=== PATIENT | male | born 1960 | race Caucasian/White ===

== ENCOUNTER 2016-10-16 02:18 | Observation (INO) ==
[2016-10-16] MEDS ORDERED: ONDANSETRON 4 MG/2 ML VIAL ONE (02:32)
[2016-10-16] MEDS ORDERED: ONDANSETRON 4 MG/2 ML VIAL IV STA (02:35)
[2016-10-16] MEDS ORDERED: HYDROmorphone 2 MG/1 ML VIAL IV STA (02:45)
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
[2016-10-16] MEDS ORDERED: HYDROmorphone 2 MG/1 ML VIAL ONE (03:28)
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
[2016-10-16] MEDS ORDERED: BISACODYL 5 MG TABLET PO PRN (03:55)
[2016-10-16] MEDS ORDERED: MORPHINE 2 MG/1 ML SYRINGE IV PRN (03:55)
[2016-10-16] MEDS ORDERED: ONDANSETRON 4 MG/2 ML VIAL IV PRN (03:55)
[2016-10-16] MEDS ORDERED: ACETAMINOPHEN 325 MG TABLET PO PRN (03:55)
[2016-10-16] MEDS ORDERED: SODIUM CHLORIDE 0.9% 1,000 ML IV SCH (04:00)
[2016-10-16 05:27] LABS: Basophils % 0.3 % (0.0-0.8); Eosinophils % 0.1 % (0.00-10.9); Hematocrit 34.8 VOL% (42.0-52.0); Immature Granulocytes % 0.4 %; Immature Granulocytes Absolute 0.03 #; Lymphocytes # 0.8 10*3/uL (1.4-4.0); Lymphocytes % 11.7 % (21.2-54.2); Mean Corpuscular HGB Conc 34.5 GM/DL (32-36); Mean Corpuscular Hemoglobin 33 PG (27-34); Mean Corpuscular Volume 94.8 FL (87-102); Mean Platelet Volume 10.3 FL (9.6-12.0); Monocytes # 0.4 10*3/uL (0.11-0.8); Monocytes % 6.1 % (1.7-12.7); Neutrophils # 5.4 10*3/uL (1.4-7.4); Neutrophils % 81.4 % (38.7-73.9); Platelet Count 110 T/CUMM (130-400); Red Blood Count 3.67 MC/CUMM (3.8-5.5); Red Cell Distribution Width 13.9 % (9.3-17.3); White Blood Count 6.7 T/CUMM (4-12)
[2016-10-16 05:57] LABS: Albumin 3.7 G/DL (3.4-5.0); Bilirubin,Total 1.2 MG/DL (0.2-1.0); Calcium 8.7 MG/DL (8.5-10.1); Osmolality,Calculated 276.5 MOS/KG (273-304); Potassium 3.8 MMOL/L (3.5-5.1); Total Protein 6.8 G/DL (6.4-8.3)
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
[2016-10-16] MEDS: PANTOPRAZOLE 40 MG TABLET PO SCH (09:33)
[2016-10-16] MEDS: ENOXAPARIN 40 MG/0.4 ML SYRINGE SUBCUT SCH (09:33)
[2016-10-16] MEDS: ESCITALOPRAM 10 MG TABLET PO SCH (09:33)
[2016-10-16] MEDS: buPROPion SR 100 MG TABLET PO SCH ×2 (09:33→20:34)
--- NOTE | 2016-10-16 09:46 | Hospitalist Progress Note ---
Assessment and Plan - Time spent with patient Time spent with patient: Less than 30 minutes (1) Intractable nausea and vomiting Status: Acute Current Visit: Yes (2) Acute duodenitis Status: Acute Current Visit: Yes (3) Abdominal pain Status: Acute Assessment and plan: Continue IV fluid hydration, regularly wean off and discontinue if he tolerates oral feeds well. Continue IV Protonix Add amylase and lipase to labs. If symptoms are not improved, consider CT scan of the abdomen for further evaluation. I will await gastroenterology recommendations. Current Visit: Yes Hospitalist: Subjective Interval history: 56-year-old man admitted earlier this morning for intractable abdominal pain, nausea and vomiting due to gastritis/duodenitis. He is being managed supportively, gastroenterology was consulted, follow-up their final recommendation. These could be due to acute pancreatitis, no amylase or lipase in his earlier labs reported. We will order. He however feels much better already, no more nausea and vomiting. Abdominal pain also improved. He is willing to try oral feeds Exam - Constitutional Vitals: Period Temp Pulse Resp BP Sys/Johnson Pulse Ox Last 24 Hr 97.9 F-98.0 F 75-97 16-20 98-148/50-90 97-100 Exam: General exam is unchanged from admission. Results - Labs CBC & BMP: 10/16/16 05:11 10/16/16 05:11 Lab Results: I have reviewed the past 24 hour labs Quality Measures - Stroke Symptom Onset Unknown: No
[2016-10-16] MEDS: ALPRAZolam 0.5 MG TABLET PO PRN (16:29)
[2016-10-17] MEDS: PANTOPRAZOLE 40 MG TABLET PO SCH (08:36)
[2016-10-17] MEDS: buPROPion SR 100 MG TABLET PO SCH (08:36)
[2016-10-17] MEDS: ESCITALOPRAM 10 MG TABLET PO SCH (08:36)
[2016-10-17] MEDS: ENOXAPARIN 40 MG/0.4 ML SYRINGE SUBCUT SCH (08:36)
--- NOTE | 2016-10-17 09:27 | Discharge Summary ---
Hospital Course - Hospital Course Hospital Course: This is a chronically ill 56-year-old male that presented to the ED at [facility] as a lateral transfer from a [facility] for further evaluation of abdominal pain nausea and vomiting. The patient has a medical history significant for hypertension, anxiety, schizophrenia , chronic back pain , chronic pain syndrome, depression, hepatitis C, benign prostatic hyperplasia, nicotine addiction, cannabis abuse, pancreatitis, and left lobe liver mass. The patient reports a surgical history of abdominal surgery and multiple orthopedic procedures. The patient had presented to [facility] the morning of presentation reporting a complaint of abdominal pain. He reported that the pain was moderate however tolerable and crampy in quality. He denied radiation of pain to the chest or back and reported that the pain started gradually a couple of hours prior to him presenting to the ED. In addition the patient reported multiple episodes of nausea and vomiting, however denied melena or mucus in his stool. The patient was evaluated and antiemetics were given, however the nausea and vomiting persisted. CT of the abdomen and pelvis was obtained which reported findings concerning pancreatitis versus duodenitis, multiple collaterals about the perisplenic region and gastric fundus of intermediate in etiology, small. Hepatic fluid, indeterminate left renal lesion , diverticular lordosis without diverticulitis, subcentimeter nodules of the left lower lung lobe. The patient was subsequently transferred to [facility] for continuation of care. At the time of admission the patient was assessed. Empiric antibiotics, anti- emetics, bowel rest, pain management, and volume replacement was administered. A gastrointestinal consult was requested, the patient was evaluated, and recommendations were given. The patient's condition has improved. Today, we feel that the patient is appropriate for discharge home to follow-up with his primary care physician and ged instructor as ordered. Discharge Plan - Discharge Medications No Action Escitalopram [Lexapro] 20 mg PO DAILY ALPRAZolam [Xanax] 2 mg PO QID PRN PRN Reason: Anxiety Mupirocin 2% Oint [Bactroban 2% Oint] 1 applic TOP TID Diclofenac Sodium Tab [Voltaren] 75 mg PO BID buPROPion HCl [Wellbutrin Sr] 200 mg PO BID Elbasvir/Grazoprevir [Zepatier 50-100 mg Tablet] 1 each PO DAILY - Follow Up or Referral - Forms/Instructions Exam - Constitutional Vitals: Period Temp Pulse Resp BP Sys/Johnson Pulse Ox Last 24 Hr 97.1 F-99.5 F 66-81 18-21 111-130/59-72 95-99 Discharge Results Procedures and tests throughout hospitalization: Pending Orders 10/18/16 04:00 CBC [Comp Blood Count Auto Diff] IN AM CMP [Comprehensive Metabolic Panel] IN AM Hepatic (Liver) Panel IN AM Magnesium IN AM Phosphorous IN AM Labs on day of discharge: Labs from last 24 hours 10/16/16 05:11 Amylase 62 Lipase 182.0 DS: Provider Date of admission: 10/16/16 03:55 Primary care physician: Francisco Edmondson MD Attending physician on admission: Anton Land DO Consults: 10/16/16 03:55 Consult to Physician [CONS] Routine Comment: acute duodenitis, chronic hepC Consulting Provider: Quinn Allen Consult to Specialist Group: Gastroenterology When should Consulting Provider be notified: In am Person Notified: Dr. Cortez Date Notified: 10/16/16 Time Notified: 08:27 Discharging clinician: Bakari Cheng CNP
[2016-10-17] MEDS: ALPRAZolam 0.5 MG TABLET PO PRN (10:22)
[2016-10-17 11:53] VITALS: BP 144/85
--- NOTE | 2016-10-17 14:08 | Discharge Summary ---
Hospital Course - Hospital Course Hospital Course: This is a chronically ill 56-year-old male that presented to the ED at as a lateral transfer from a [facility] for further evaluation of abdominal pain nausea and vomiting. The patient has a medical history significant for hypertension, anxiety, schizophrenia , chronic back pain , chronic pain syndrome, depression, hepatitis C, benign prostatic hyperplasia, nicotine addiction, cannabis abuse, pancreatitis, and left lobe liver mass. The patient reports a surgical history of abdominal surgery and multiple orthopedic procedures. The patient had presented to [facility] the morning of presentation reporting a complaint of abdominal pain. He reported that the pain was moderate however tolerable and crampy in quality. He denied radiation of pain to the chest or back and reported that the pain started gradually a couple of hours prior to him presenting to the ED. In addition the patient reported multiple episodes of nausea and vomiting, however denied melena or mucus in his stool. The patient was evaluated and antiemetics were given, however the nausea and vomiting persisted. CT of the abdomen and pelvis was obtained which reported findings concerning pancreatitis versus duodenitis, multiple collaterals about the perisplenic region and gastric fundus of intermediate in etiology, small. Hepatic fluid, indeterminate left renal lesion , diverticular lordosis without diverticulitis, subcentimeter nodules of the left lower lung lobe. The patient was subsequently transferred to for continuation of care. At the time of admission the patient was assessed. Empiric antibiotics, anti- emetics, bowel rest, pain management, and volume replacement was administered. A gastrointestinal consult was requested, the patient was evaluated, and recommendations were given. The patient's condition has improved. Today, we feel that the patient is appropriate for discharge home to follow-up with his primary care physician and hydrogen treater as ordered. Diagnosis - Discharge Diagnosis (1) Pancreatitis Status: Resolved (2) Intractable nausea and vomiting Status: Resolved (3) Chronic hepatitis C Status: Chronic (4) Abdominal pain Status: Resolved (5) Gastritis/duodenitis Status: Resolved Discharge Plan - Discharge Data Disposition: Disch To Home/Self Care Condition at Discharge: Stable Discharge Diet: advance to your usual diet - Discharge Medications New Pantoprazole Tab [Protonix Tab] 40 mg PO DAILY #30 tablet HYDROcodone/ACETAMIN 5-325 [[place] 5-325] 1 tablet PO Q4H PRN #30 tablet PRN Reason: Pain Mild (1-3) Continue Escitalopram [Lexapro] 20 mg PO DAILY ALPRAZolam [Xanax] 2 mg PO QID PRN PRN Reason: Anxiety Mupirocin 2% Oint [Bactroban 2% Oint] 1 applic TOP TID Diclofenac Sodium Tab [Voltaren] 75 mg PO BID buPROPion HCl [Wellbutrin Sr] 200 mg PO BID Elbasvir/Grazoprevir [Zepatier 50-100 mg Tablet] 1 each PO DAILY - Follow Up or Referral - Forms/Instructions Additional Discharge Instructions: Follow gastroenterology as scheduled. Follow her primary provider in 1 week. Exam - Constitutional Vitals: Period Temp Pulse Resp BP Sys/Johnson Pulse Ox Last 24 Hr 97.1 F-99.5 F 66-77 18-21 111-144/59-85 95-99 General appearance: normal weight - Head Head exam: Present: normal inspection - Eye Pupils: Present: ABDIRIZAK - Respiratory Respiratory exam: Present: clear to auscultation bilaterally - Cardiovascular Cardiovascular exam: Present: regular rate and rhythm - GI/Abdominal GI/Abdominal exam: Present: normal bowel sounds - Extremities Exam Extremities exam: Present: normal inspection - Neurological Exam Neurological exam: Present: alert, oriented X3 - Psychiatric Psychiatric exam: Present: normal affect Discharge Results Procedures and tests throughout hospitalization: Pending Orders 10/17/16 13:50 Hepatitis C RNA Detect/Quant Stat 10/18/16 04:00 CBC [Comp Blood Count Auto Diff] IN AM CMP [Comprehensive Metabolic Panel] IN AM Hepatic (Liver) Panel IN AM Magnesium IN AM Phosphorous IN AM DS: Provider Date of admission: 10/16/16 03:55 Primary care physician: Francisco Edmondson MD Attending physician on admission: Anton Land DO Consults: 10/16/16 03:55 Consult to Physician [CONS] Routine Comment: acute duodenitis, chronic hepC Consulting Provider: Quinn Allen Consult to Specialist Group: Gastroenterology When should Consulting Provider be notified: In am Person Notified: Dr. Cortez Date Notified: 10/16/16 Time Notified: 08:27 Discharging clinician: Gurjit Montaño Jr., MD
--- NOTE | 2016-10-17 14:10 | Gastrointestinal Progress Note ---
Assessment and Plan (1) Intractable nausea and vomiting Status: Acute Assessment and plan: I suspect this patient likely has nausea and vomiting from diclofenac induced gastritis/duodenitis. Inflammation was seen on CT scanning. Although lipase is slightly elevated and appears to be normal here on recheck. I do not believe the patient has pancreatitis from the Zepatier, hepatitis C treatment 12 weeks. He is already 2 months into his 3 month treatment. It is time to check a viral load is he has not done this up to this point. I believe his liver function tests will be higher if his hepatitis B was reactivated. I think suppressing this patient's acidity is already helped during this hospitalization and have given a prescription for both Phenergan 25 mg p.o. every 6 hours #60 refills 1 as well as pantoprazole 40 mg 1 p.o. twice daily to help out with his nausea/vomiting. After month the patient can decrease his pantoprazole to once a day prior to supper. I have asked the nursing staff to get his blood drawn before he leaves today. Current Visit: Yes (2) Gastritis/duodenitis Status: Acute Assessment and plan: This is probably secondary to the patient's earlier use of diclofenac although alcohol cannot be completely ruled out nor can other caustic medications. I do not see any other medications that would typically produce this level of irritation. Nausea can be seen with the Zepatier. 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 Current Visit: Yes (3) Hemangioma of liver Status: Acute Assessment and plan: The hemangioma is known from previous CT scans and ultrasounds, we are simply watching this. The patient has had previous alpha-fetoprotein levels. Typically alpha-fetoprotein is not needed if the patient does not have true cirrhosis. Current Visit: Yes (4) Chronic hepatitis C Status: Acute Assessment and plan: The patient does have hepatitis C for which she is taking a 12 week course of Zepatier, currently 8 weeks into this 12 week course. He had to undergo previous NS5A drug resistance assay to qualify for this medication and was not found to have drug resistance to any of the medications on the included list. Again, I would like to check his hepatitis C viral load to ensure that this is down to 0/to complete suppression. I suspect it likely is given his transaminases are back to normal again. Current Visit: Yes Gastroenterology - PN: Subj Interval history: This patient is well-known to me from his previous office visits most recently seen on 05/24/16. He is known to have hepatitis C with liver biopsy demonstrating 3 out of 4 fibrosis and a Rylee score of 13 out of 18. He has inflammation graded 3 out of 4 as well. He has a genotype of 1A verified on 02/28 and also has a hepatitis C quantitative titer of 1,491,700 IU/ml again on 05/24/16 which corresponds to a HCV log 10 value of 6.174. Laboratories are negative for hemochromatosis and alpha-1 antitrypsin deficiency he shows immunity to hepatitis A and B, and is now starting his second month of treatment with Zapatier (Elbasvir 50 mg/Grazoprevir 100 mg) daily 12 weeks. As mentioned previously he has 1 month ago. He has not come back to the office and so we will check a hepatitis C viral load at this time to make sure that he is suppressed. CT scan this admission is showing some gastritis/duodenitis and this may be related to the patient's diclofenac use producing erosive gastritis. We will check patient's HBV viral load as well as this virus can reactivate on the medication. Although this medication is known to produce elevations in bilirubin in about 6% of patients I do not see specifically that has an increased risk of pancreatitis. Exam (Progress Note) - Constitutional Vitals: Period Temp Pulse Resp BP Sys/Johnson Pulse Ox Last 24 Hr 97.1 F-99.5 F 66-77 18-21 111-144/59-85 95-99 General appearance: mild distress (With nausea and back pain) - Head Head exam: Present: normocephalic - Eye Eye exam: Present: EOMI Pupils: Present: ABDIRIZAK - Respiratory Respiratory exam: Present: clear to auscultation bilaterally. Absent: rhonchi, stridor, wheezes - Cardiovascular Cardiovascular exam: Present: regular rate and rhythm - GI/Abdominal GI/Abdominal exam: Present: normal bowel sounds, tenderness (Mild left lower quadrant tenderness, complaining more of back pain.), soft. Absent: distended, guarding - Neurological Exam Neurological exam: Present: alert, oriented X3 - Psychiatric Psychiatric exam: Present: normal affect, normal mood - Skin Skin exam: Present: warm Results - Labs CBC & BMP: 10/16/16 05:11 10/16/16 05:11
== END 2016-10-17 15:46 | disposition home or self-care (01) ==
LOC: EDBD → EDUNIT# → N.ED 02:18 → N.EDINP 02:18 → SUATTDRO 03:55 → N.2E 04:30
PROVIDERS: ADMIT Internal Medicine; ATTEND Internal Medicine Nephrology

== ENCOUNTER 2018-08-29 11:09 | Inpatient (IN) ==
[2018-08-29 11:38] LABS: Basophils # 0.1 10*3/uL (0.0-0.2); Basophils % 0.6 % (0.0-0.8); Eosinophils # 0.2 10*3/uL (0.0-0.87); Eosinophils % 1.8 % (0.00-10.9); Hematocrit 45.1 VOL% (42.0-52.0); Hemoglobin 14.3 GM/DL (14.0-18.0); Immature Granulocytes % 1.1 %; Immature Granulocytes Absolute 0.09 #; Lymphocytes # 2.1 10*3/uL (1.4-4.0); Lymphocytes % 25.2 % (21.2-54.2); Mean Corpuscular HGB Conc 31.7 GM/DL (32-36); Mean Corpuscular Hemoglobin 31 PG (27-34); Mean Corpuscular Volume 97.4 FL (87-102); Mean Platelet Volume 10.3 FL (9.6-12.0); Monocytes # 0.5 10*3/uL (0.11-0.8); Neutrophils # 5.3 10*3/uL (1.4-7.4); Neutrophils % 65.3 % (38.7-73.9); Platelet Count 204 T/CUMM (130-400); Red Blood Count 4.63 MC/CUMM (3.8-5.5); Red Cell Distribution Width 13.5 % (9.3-17.3); White Blood Count 8.1 T/CUMM (4-12)
[2018-08-29 11:46] LABS: PT Patient Result 11.1 SECS; Partial Thromboplastin Time 25.7 SECS (0-40)
[2018-08-29 12:17] LABS: Alanine Aminotransferase 33 U/L (16-61); Albumin 4.2 G/DL (3.4-5.0); Alkaline Phosphatase 102 U/L (45-117); Aspartate Amino Transferase 22 U/L (0-37); Bilirubin,Total < 0.39 MG/DL (0.2-1.0); Blood Urea Nitrogen 7 MG/DL (7-18); Calcium 9.1 MG/DL (8.5-10.1); Glucose 130 MG/DL (74-106); Osmolality,Calculated 280.3 MOS/KG (273-304); Sodium 141 MMOL/L (136-145); Total Protein 8.2 G/DL (6.4-8.3)
[2018-08-29 12:46] LABS: Apearance,Urine CLEAR (Clear); Bilirubin,Urine Negative (Negative); Blood, Urine Negative (Negative); Glucose,Urine (UA) Negative (Negative); Hyaline Casts,Urine 4 /LPF (0-3); Ketones,Urine Negative (Negative); Mucus,Urine Occasional /LPF (Occasional); Nitrite,Urine Negative (Negative); Protein,Urine 30 MG/DL; RBC,Urine 1 /HPF (0-4); Urine Color Yellow (Yellow); Urine Specific Gravity 1.015 (1.001-1.035); Urine Urobilinogen < 2.0 EU/DL (0.2-1.0); WBC,Urine 1 /HPF (0-6)
[2018-08-29 12:54] LABS: Barbiturates Screen,Urine Negative (Negative); Benzodiazepines Screen,Urine Positive (Negative); Cannabinoid Screen,Urine Positive (Negative); Opiate Screen,Urine Negative (Negative); Phencyclidine Screen,Urine Negative (Negative)
[2018-08-29] MEDS ORDERED: SODIUM CHLORIDE 0.9% 100 ML IV ONE (13:09)
[2018-08-29] MEDS ORDERED: ACETAMINOPHEN 500 MG TABLET PO PRN (13:25)
[2018-08-29 13:56] LABS: Alanine Aminotransferase 33 U/L (16-61); Albumin 4.3 G/DL (3.4-5.0); Alkaline Phosphatase 103 U/L (45-117); Aspartate Amino Transferase 22 U/L (0-37); Bilirubin,Indirect 0.3 MG/DL (0.0-1.0); Bilirubin,Total < 0.39 MG/DL (0.2-1.0)
[2018-08-29] MEDS: SODIUM CHLORIDE 0.9% 1,000 ML IV SCH (15:05)
[2018-08-29] MEDS: ONDANSETRON 4 MG/2 ML VIAL IV PRN ×2 (18:35→22:33)
[2018-08-29] MEDS ORDERED: LORazepam 2 MG/1 ML VIAL IV ONE (18:59)
[2018-08-29] MEDS ORDERED: diphenhydrAMINE 50 MG/1 ML VIAL IV ONE (19:01)
[2018-08-29] MEDS: LORazepam 2 MG/1 ML VIAL IV PRN ×2 (20:32→22:32)
[2018-08-29] MEDS: HEPARIN 5,000 UNIT/1 ML VIAL SUBCUT SCH (22:27)
[2018-08-30] MEDS: SODIUM CHLORIDE 0.9% 1,000 ML IV SCH ×2 (01:14→13:09)
[2018-08-30] MEDS: LORazepam 2 MG/1 ML VIAL IV PRN (01:15)
[2018-08-30] MEDS: HEPARIN 5,000 UNIT/1 ML VIAL SUBCUT SCH ×3 (05:55→22:46)
[2018-08-30 06:07] LABS: Basophils % 0.1 % (0.0-0.8); Hematocrit 38.6 VOL% (42.0-52.0); Hemoglobin 12.8 GM/DL (14.0-18.0); Immature Granulocytes % 0.8 %; Immature Granulocytes Absolute 0.12 #; Lymphocytes # 1.3 10*3/uL (1.4-4.0); Lymphocytes % 8.8 % (21.2-54.2); Mean Corpuscular HGB Conc 33.2 GM/DL (32-36); Mean Corpuscular Hemoglobin 31 PG (27-34); Mean Corpuscular Volume 94.1 FL (87-102); Mean Platelet Volume 11.4 FL (9.6-12.0); Monocytes # 0.6 10*3/uL (0.11-0.8); Monocytes % 4.1 % (1.7-12.7); Neutrophils # 13.1 10*3/uL (1.4-7.4); Neutrophils % 86.2 % (38.7-73.9); Platelet Count 203 T/CUMM (130-400); Red Cell Distribution Width 13.7 % (9.3-17.3); White Blood Count 15.3 T/CUMM (4-12)
[2018-08-30 06:31] LABS: Albumin 3.7 G/DL (3.4-5.0); Bilirubin,Total 0.9 MG/DL (0.2-1.0); Calcium 8.9 MG/DL (8.5-10.1); Osmolality,Calculated 275.5 MOS/KG (273-304); Potassium 3.6 MMOL/L (3.5-5.1); Total Protein 7.6 G/DL (6.4-8.3)
[2018-08-30] MEDS ORDERED: LACTULOSE 20 GM/30 ML UDCUP PO ONE (08:00)
[2018-08-30] MEDS: AZITHROMYCIN 250 MG TABLET PO SCH (08:48)
[2018-08-30] MEDS: PANTOPRAZOLE 40 MG VIAL IV SCH (08:49)
[2018-08-30] MEDS: cefTRIAXone 2,000 MG in SYRINGE 1 EACH IV SCH (08:49)
[2018-08-30] MEDS: ONDANSETRON 4 MG/2 ML VIAL IV PRN (18:17)
[2018-08-30] MEDS: ALPRAZolam 0.5 MG TABLET PO PRN (20:17)
[2018-08-30] MEDS ORDERED: ALPRAZolam 0.5 MG TABLET PO SCH (22:00)
[2018-08-31] MEDS: ONDANSETRON 4 MG/2 ML VIAL IV PRN (01:11)
[2018-08-31] MEDS: SODIUM CHLORIDE 0.9% 1,000 ML IV SCH ×4 (01:14→17:21)
[2018-08-31 04:27] LABS: Basophils % 0.2 % (0.0-0.8); Hematocrit 36.3 VOL% (42.0-52.0); Hemoglobin 11.7 GM/DL (14.0-18.0); Immature Granulocytes % 0.7 %; Immature Granulocytes Absolute 0.07 #; Lymphocytes # 1.8 10*3/uL (1.4-4.0); Lymphocytes % 17.1 % (21.2-54.2); Mean Corpuscular HGB Conc 32.2 GM/DL (32-36); Mean Corpuscular Hemoglobin 31 PG (27-34); Mean Corpuscular Volume 96.5 FL (87-102); Mean Platelet Volume 10.6 FL (9.6-12.0); Monocytes # 0.9 10*3/uL (0.11-0.8); Monocytes % 8.2 % (1.7-12.7); Neutrophils # 7.6 10*3/uL (1.4-7.4); Neutrophils % 73.8 % (38.7-73.9); Platelet Count 148 T/CUMM (130-400); Red Blood Count 3.76 MC/CUMM (3.8-5.5); Red Cell Distribution Width 13.6 % (9.3-17.3); White Blood Count 10.4 T/CUMM (4-12)
[2018-08-31] MEDS: HEPARIN 5,000 UNIT/1 ML VIAL SUBCUT SCH ×2 (05:53→14:48)
[2018-08-31 07:21] LABS: Apearance,Urine CLEAR (Clear); Bilirubin,Urine Negative (Negative); Blood, Urine Negative (Negative); Glucose,Urine (UA) Negative (Negative); Ketones,Urine 20 mg/dL (Negative); Mucus,Urine Occasional /LPF (Occasional); Nitrite,Urine Negative (Negative); Protein,Urine Negative; RBC,Urine <1 /HPF (0-4); Urine Color Yellow (Yellow); Urine Specific Gravity 1.028 (1.001-1.035); Urine Urobilinogen < 2.0 EU/DL (0.2-1.0); WBC,Urine 2 /HPF (0-6)
[2018-08-31] MEDS ORDERED: BISACODYL 5 MG TABLET PO ONE (09:00)
[2018-08-31] MEDS ORDERED: MAGNESIUM HYDROXIDE SUSP 30 ML UDCUP PO ONE (09:00)
[2018-08-31] MEDS: ALPRAZolam 0.5 MG TABLET PO PRN (09:21)
[2018-08-31] MEDS: AZITHROMYCIN 250 MG TABLET PO SCH (09:22)
[2018-08-31] MEDS: PANTOPRAZOLE 40 MG VIAL IV SCH (09:23)
[2018-08-31] MEDS: cefTRIAXone 2,000 MG in SYRINGE 1 EACH IV SCH (09:32)
[2018-08-31 11:55] VITALS: BP 125/87
== END 2018-08-31 18:23 | disposition home or self-care (01) | DRG 100 ==
LOC: EDUNIT# → N.ED 11:09 → N.EDINP 11:09 → N.2E 15:08
PROVIDERS: ADMIT Hospitalist; ATTEND Hospitalist

== ENCOUNTER 2018-12-27 21:46 | Inpatient (IN) ==
[2018-12-28] MEDS ORDERED: ALBUTEROL 2.5 MG/3 ML NEB RESP TX PRN (01:29)
[2018-12-28] MEDS ORDERED: ONDANSETRON 4 MG/2 ML VIAL IV PRN (01:29)
[2018-12-28] MEDS ORDERED: ACETAMINOPHEN 325 MG TABLET PO PRN (01:29)
[2018-12-28] MEDS ORDERED: LORazepam 2 MG/1 ML VIAL IV PRN (01:37)
[2018-12-28] MEDS: SODIUM CHLORIDE 0.9% 1,000 ML IV SCH ×2 (02:09→15:17)
[2018-12-28] MEDS: AZITHROMYCIN INJ 500 MG in SODIUM CHLORIDE 0.9% 250 ML IV SCH (02:10)
[2018-12-28 06:58] LABS: Basophils % 0.2 % (0.0-0.8); Eosinophils % 0.2 % (0.00-10.9); Hematocrit 37.4 VOL% (42.0-52.0); Hemoglobin 12.2 GM/DL (14.0-18.0); Immature Granulocytes % 0.5 %; Immature Granulocytes Absolute 0.06 #; Lymphocytes # 2.1 10*3/uL (1.4-4.0); Lymphocytes % 18.1 % (21.2-54.2); Mean Corpuscular HGB Conc 32.6 GM/DL (32-36); Mean Corpuscular Volume 92.8 FL (87-102); Mean Platelet Volume 11.1 FL (9.6-12.0); Monocytes % 9.5 % (1.7-12.7); Neutrophils % 71.5 % (38.7-73.9); Platelet Count 158 T/CUMM (130-400); Red Blood Count 4.03 MC/CUMM (3.8-5.5); Red Cell Distribution Width 13.9 % (9.3-17.3); White Blood Count 11.8 T/CUMM (4-12)
[2018-12-28 07:12] LABS: Albumin 3.3 G/DL (3.4-5.0); Calcium 8.5 MG/DL (8.5-10.1); Total Protein 7.3 G/DL (6.4-8.3)
[2018-12-28] MEDS: ENOXAPARIN 40 MG/0.4 ML SYRINGE SUBCUT SCH (09:25)
[2018-12-28] MEDS: cefTRIAXone 1,000 MG in SYRINGE 1 EACH IV SCH (17:30)
[2018-12-29] MEDS: AZITHROMYCIN INJ 500 MG in SODIUM CHLORIDE 0.9% 250 ML IV SCH (01:24)
[2018-12-29] MEDS: ENOXAPARIN 40 MG/0.4 ML SYRINGE SUBCUT SCH (08:54)
[2018-12-29] MEDS: SODIUM CHLORIDE 0.9% 1,000 ML IV SCH (12:38)
[2018-12-29] MEDS: cefTRIAXone 1,000 MG in SYRINGE 1 EACH IV SCH (17:00)
[2018-12-29] MEDS: levETIRAcetam 500 MG TABLET PO SCH (20:49)
[2018-12-30] MEDS: levETIRAcetam 500 MG TABLET PO SCH (09:59)
[2018-12-30] MEDS: SODIUM CHLORIDE 0.9% 1,000 ML IV SCH (10:01)
[2018-12-30] MEDS: ENOXAPARIN 40 MG/0.4 ML SYRINGE SUBCUT SCH (10:01)
[2018-12-30 15:43] VITALS: BP 144/90
== END 2018-12-30 14:40 | disposition home or self-care (01) | DRG 101 ==
LOC: N.CC 22:43 → SUATTDRO 23:37 → N.5E 12-28 15:43
PROVIDERS: ADMIT Internal Medicine Nephrology; ATTEND Internal Medicine

== ENCOUNTER 2019-03-24 11:57 | Inpatient (IN) ==
[2019-03-24] MEDS ORDERED: SODIUM CHLORIDE 0.9% 1,000 ML IV STA (12:17)
[2019-03-24] MEDS ORDERED: ONDANSETRON 4 MG/2 ML VIAL IV STA (12:17)
[2019-03-24] MEDS ORDERED: flumazeniL 0.5 MG/5 ML VIAL IV PRN (12:17)
[2019-03-24 12:35] LABS: Basophils % 0.1 % (0.0-0.8); Hematocrit 44.4 VOL% (42.0-52.0); Hemoglobin 15.2 GM/DL (14.0-18.0); Immature Granulocytes % 0.9 %; Immature Granulocytes Absolute 0.19 #; Lymphocytes # 1.3 10*3/uL (1.4-4.0); Lymphocytes % 6.6 % (21.2-54.2); Mean Corpuscular HGB Conc 34.2 GM/DL (32-36); Mean Corpuscular Volume 91.2 FL (87-102); Mean Platelet Volume 11.5 FL (9.6-12.0); Monocytes % 6.8 % (1.7-12.7); Neutrophils % 85.6 % (38.7-73.9); Platelet Count 191 T/CUMM (130-400); Red Blood Count 4.87 MC/CUMM (3.8-5.5); White Blood Count 20.1 T/CUMM (4-12)
[2019-03-24 12:53] LABS: INR 1.1; Partial Thromboplastin Time 29.3 SECS (20.8-36.0)
[2019-03-24 12:54] LABS: Amorphous Crystals,Urine Occasional /HPF (Few); Apearance,Urine CLOUDY (Clear); Bilirubin,Urine Negative (Negative); Blood, Urine Small mg/dL (Negative); Glucose,Urine (UA) Negative (Negative); Ketones,Urine 80 mg/dL (Negative); Mucus,Urine Occasional /LPF (Occasional); Nitrite,Urine Negative (Negative); Protein,Urine 100 MG/DL; Urine Color Amber (Yellow); Urine Specific Gravity 1.026 (1.001-1.035); Urine Urobilinogen < 2.0 EU/DL (0.2-1.0)
[2019-03-24 12:57] LABS: Lymphocytes 4 % (20-55); Segmented Neutrophils 90 % (50-85); Total Cells Counted 100
[2019-03-24 12:58] LABS: Platelet Estimate Normal; Polychromasia Slight
[2019-03-24 13:03] LABS: Alanine Aminotransferase 16 U/L (16-61); Alkaline Phosphatase 82 U/L (45-117); Aspartate Amino Transferase 23 U/L (0-37); Blood Urea Nitrogen 16 MG/DL (7-18); Estimated Glom Filtration Rate 83 ML/MIN; Free T4 (Free Thyroxine) 1.83 NG/DL (0.76-1.46); Glucose 118 MG/DL (74-106); Osmolality,Calculated 282.3 MOS/KG (273-304); Salicylate < 2.8 MG/DL (2.8-20); Total Protein 9.2 G/DL (6.4-8.3); Troponin I < 0.015 NG/ML (0.00-0.045)
[2019-03-24 13:06] LABS: Acetaminophen < 2.0 UG/ML (10-30)
[2019-03-24 13:16] LABS: Barbiturates Screen,Urine Negative (Negative); Benzodiazepines Screen,Urine Negative (Negative); Cannabinoid Screen,Urine Positive (Negative); Opiate Screen,Urine Negative (Negative); Phencyclidine Screen,Urine Negative (Negative)
[2019-03-24] MEDS ORDERED: LORazepam 2 MG/1 ML VIAL IV STA (13:26)
[2019-03-24] MEDS ORDERED: ONDANSETRON 4 MG/2 ML VIAL IV PRN (16:20)
[2019-03-24] MEDS ORDERED: cefTRIAXone 1,000 MG VIAL ONE (17:39)
[2019-03-24] MEDS: cefTRIAXone 1,000 MG in SYRINGE 1 EACH IV SCH (17:42)
[2019-03-25 05:30] LABS: Basophils % 0.1 % (0.0-0.8); Hematocrit 40.7 VOL% (42.0-52.0); Immature Granulocytes % 0.8 %; Immature Granulocytes Absolute 0.14 #; Lymphocytes # 1.7 10*3/uL (1.4-4.0); Lymphocytes % 9.5 % (21.2-54.2); Mean Corpuscular HGB Conc 31.9 GM/DL (32-36); Mean Corpuscular Volume 94.7 FL (87-102); Monocytes % 6.2 % (1.7-12.7); Neutrophils % 83.4 % (38.7-73.9); Platelet Count 147 T/CUMM (130-400); Red Cell Distribution Width 14.5 % (9.3-17.3); White Blood Count 17.5 T/CUMM (4-12)
[2019-03-25 06:05] LABS: Albumin 4.2 G/DL (3.4-5.0); Bilirubin,Total 1.8 MG/DL (0.2-1.0); Calcium 9.2 MG/DL (8.5-10.1); Osmolality,Calculated 283.1 MOS/KG (273-304); Risk Ratio 5.32
[2019-03-25] MEDS: cefTRIAXone 1,000 MG in SYRINGE 1 EACH IV SCH (08:35)
[2019-03-25] MEDS: PANTOPRAZOLE 40 MG TABLET PO SCH (08:35)
[2019-03-25] MEDS: ESCITALOPRAM 10 MG TABLET PO SCH (14:45)
[2019-03-25] MEDS ORDERED: ALPRAZolam 0.5 MG TABLET PO ONE (15:00)
[2019-03-25] MEDS: NAPROXEN 500 MG TABLET PO SCH (17:56)
[2019-03-25] MEDS: levETIRAcetam 500 MG TABLET PO SCH (20:35)
[2019-03-26 05:26] LABS: Basophils % 0.1 % (0.0-0.8); Eosinophils % 0.3 % (0.00-10.9); Lymphocytes # 2.4 10*3/uL (1.4-4.0); Lymphocytes % 19.2 % (21.2-54.2); Monocytes % 7.3 % (1.7-12.7); Neutrophils % 72.7 % (38.7-73.9); White Blood Count 12.5 T/CUMM (4-12)
[2019-03-26 05:27] LABS: Basophils % 0.1 % (0.0-0.8); Eosinophils % 0.2 % (0.00-10.9); Hematocrit 37.9 VOL% (42.0-52.0); Hemoglobin 12.6 GM/DL (14.0-18.0); Immature Granulocytes % 0.6 %; Immature Granulocytes Absolute 0.07 #; Lymphocytes # 2.5 10*3/uL (1.4-4.0); Lymphocytes % 19.5 % (21.2-54.2); Mean Corpuscular HGB Conc 33.2 GM/DL (32-36); Mean Corpuscular Volume 93.8 FL (87-102); Mean Platelet Volume 11.6 FL (9.6-12.0); Monocytes % 7.1 % (1.7-12.7); Neutrophils % 72.5 % (38.7-73.9); Platelet Count 139 T/CUMM (130-400); Red Blood Count 4.04 MC/CUMM (3.8-5.5); Red Cell Distribution Width 14.2 % (9.3-17.3); White Blood Count 12.6 T/CUMM (4-12)
[2019-03-26 05:58] LABS: Albumin 3.8 G/DL (3.4-5.0); Bilirubin,Total 1.4 MG/DL (0.2-1.0); Calcium 9.1 MG/DL (8.5-10.1); Osmolality,Calculated 277.4 MOS/KG (273-304); Total Protein 7.3 G/DL (6.4-8.3)
[2019-03-26] MEDS: PANTOPRAZOLE 40 MG TABLET PO SCH (09:58)
[2019-03-26] MEDS: NAPROXEN 500 MG TABLET PO SCH ×2 (09:58→17:14)
[2019-03-26] MEDS: ESCITALOPRAM 10 MG TABLET PO SCH (09:58)
[2019-03-26] MEDS: cefTRIAXone 1,000 MG in SYRINGE 1 EACH IV SCH (09:58)
[2019-03-26] MEDS: levETIRAcetam 500 MG TABLET PO SCH ×2 (09:59→21:34)
[2019-03-26] MEDS: POTASSIUM CHLORIDE 20 MEQ TABLET PO PRN ×2 (12:51→17:14)
[2019-03-27 06:24] LABS: Basophils % 0.2 % (0.0-0.8); Eosinophils # 0.1 10*3/uL (0.0-0.87); Eosinophils % 0.6 % (0.00-10.9); Hematocrit 40.3 VOL% (42.0-52.0); Hemoglobin 13.2 GM/DL (14.0-18.0); Immature Granulocytes % 0.5 %; Immature Granulocytes Absolute 0.05 #; Lymphocytes # 2.2 10*3/uL (1.4-4.0); Lymphocytes % 22.9 % (21.2-54.2); Mean Corpuscular HGB Conc 32.8 GM/DL (32-36); Mean Corpuscular Volume 95.7 FL (87-102); Mean Platelet Volume 12.4 FL (9.6-12.0); Neutrophils % 68.8 % (38.7-73.9); Platelet Count 134 T/CUMM (130-400); Red Blood Count 4.21 MC/CUMM (3.8-5.5); Red Cell Distribution Width 14.2 % (9.3-17.3); White Blood Count 9.7 T/CUMM (4-12)
[2019-03-27 07:05] LABS: Calcium 9.3 MG/DL (8.5-10.1); Osmolality,Calculated 281.1 MOS/KG (273-304); Total Protein 7.4 G/DL (6.4-8.3)
[2019-03-27] MEDS: levETIRAcetam 500 MG TABLET PO SCH (09:20)
[2019-03-27] MEDS: NAPROXEN 500 MG TABLET PO SCH (09:20)
[2019-03-27] MEDS: ESCITALOPRAM 10 MG TABLET PO SCH (09:20)
[2019-03-27] MEDS: cefTRIAXone 1,000 MG in SYRINGE 1 EACH IV SCH (09:21)
[2019-03-27] MEDS: PANTOPRAZOLE 40 MG TABLET PO SCH (09:21)
[2019-03-27] MEDS: POTASSIUM CHLORIDE 20 MEQ TABLET PO PRN ×2 (09:21→11:28)
[2019-03-27 11:19] VITALS: BP 134/82
[2019-03-27] MEDS ORDERED: ALPRAZolam 0.5 MG TABLET PO ONE (14:05)
== END 2019-03-27 14:25 | disposition home or self-care (01) | DRG 101 ==
LOC: N.ED 11:57 → SUATTDRO 16:52 → N.5E 16:52
PROVIDERS: ADMIT Internal Medicine; ATTEND Emergency Medicine